=== PATIENT | female | born 1975 | race Caucasian/White ===

== ENCOUNTER 2017-04-16 16:59 | Emergency (ER) | payer BC ==
--- NOTE | 2017-04-16 17:16 | EDM.PDOC ---
ED HPI GENERAL MEDICAL PROBLEM - General Chief Complaint: Headache Stated Complaint: Headache Time Seen by Provider: 04/16/17 17:07 Source of Information: Reports: Patient, RN, RN Notes Reviewed History Limitations: Reports: No Limitations - History of Present Illness INITIAL COMMENTS - FREE TEXT/NARRATIVE: Patient presents the emergency room at [facility] complaining of "migraine" headache. The patient states that her headache began earlier this morning at 1: 30 AM. The patient states that the headache started behind her left eye and now has migrated to the right eye. The patient states the headache is throbbing and pounding. The patient states she has been taking Tylenol without any relief. The patient feels somewhat nauseated but has not thrown up. Patient denies any diarrhea. The patient states that her headaches are quite infrequent. The patient complains of photophobia that is quite severe. Patient denies any focal neurological deficit. Patient denies any chest pain or shortness of breath. No abdominal pain. Patient states she does not have an allergy to Imitrex. She states the med just does not work for her. Onset: Today Onset Date: 04/16/17 Onset Time: 03:00 Duration: Constant Location: Reports: Head Quality: Reports: Stabbing, Throbbing Severity: Severe Improves with: Reports: None Worsens with: Reports: Movement Context: Denies: Exercise, Sick Contact, Trauma Associated Symptoms: Reports: Nausea/Vomiting Treatments TIME ANALYSIS CLERK: Reports: Acetaminophen (no relief) Right Headache Pain Score (Numeric/FACES): 10 - Related Data Allergies Allergy/AdvReac Type Severity Reaction Status Date / Time bupropion HCl Allergy Anxiety Verified 04/16/17 17:16 [From Wellbutrin] hydrocodone Allergy Itching Verified 04/16/17 17:16 Home Meds: Home Meds Hydrochlorothiazide 25 mg PO DAILY 09/21/13 [History] Levothyroxine 175 mcg PO DAILY 09/21/13 [History] traZODone 50 mg PO BEDTIME PRN 09/21/13 [History] Cephalexin 250 mg PO DAILY 06/05/14 [History] Social & Family History - Tobacco Use Smoking Status *Q: Current Every Day Smoker Years of Tobacco use: 20 - Alcohol Use Days Per Week of Alcohol Use: 1 Number of Drinks Per Day: 6 Total Drinks Per Week: 6 - Recreational Drug Use Recreational Drug Use: No ED ROS GENERAL - Review of Systems Review Of Systems: See Below Constitutional: Denies: Fever, Chills, Weakness Respiratory: Denies: Shortness of Breath, Cough Cardiovascular: Denies: Chest Pain, Palpitations GI/Abdominal: Reports: Nausea. Denies: Abdominal Pain, Vomiting Skin: Reports: No Symptoms Neurological: Reports: Headache, Other (severe photophobia). Denies: Numbness, Paresthesia, Tingling - Physical Exam Exam: See Below Exam Limited By: No Limitations General Appearance: Alert, No Apparent Distress Eye Exam: Bilateral Eye: EOMI, Normal Inspection, PERRL Head Exam: Atraumatic, Normocephalic Neck: Supple Respiratory/Chest: No Respiratory Distress, Lungs Clear, Normal Breath Sounds Cardiovascular: Normal Peripheral Pulses, Regular Rate, Rhythm GI/Abdominal: Normal Bowel Sounds, Soft, Non-Tender Neuro Exam (Abbreviated): Alert, Oriented Skin Exam: Warm, Dry, Intact, Normal Color, No Rash Course - Vital Signs Last Recorded V/S: Last Vital Signs Temp 36.2 C 04/16/17 17:05 Pulse 72 04/16/17 17:05 Resp 16 04/16/17 17:05 BP 114/75 04/16/17 17:05 Pulse Ox - Orders/Labs/Meds Meds: Medications Discontinued Medications Generic Name Dose Route Start Last Admin Trade Name Christian PRN Reason Stop Dose Admin Chlorpromazine HCl 50 mg 04/16/17 17:38 Thorazine IM 04/16/17 17:39 ONETIME ONE Ketorolac Tromethamine 60 mg 04/16/17 17:36 Toradol IM 04/16/17 17:37 ONETIME ONE Ondansetron HCl 4 mg 04/16/17 17:39 Zofran IM 04/16/17 17:40 ONETIME ONE Departure - Departure Time of Disposition: 17:41 Disposition: Home, Self-Care 01 Condition: Good Clinical Impression: Tension headache - Discharge Information Instructions: Tension Headache Forms: ED Department Discharge Additional Instructions: 1. Stay well hydrated and rest 2. May continue with Tylenol as needed 3. See your Primary as symptoms warrant 4. Call with any questions/concerns - Problem List Review Problem List Initiated/Reviewed/Updated: Yes
[2017-04-16 17:32] VITALS: BP 114/75
[2017-04-16] MEDS: Ondansetron 4 MG/2 ML SDV IM ONE (17:53)
[2017-04-16] MEDS: Ketorolac 60 MG/2 ML SDV IM ONE (17:55)
== END 2017-04-16 18:01 | disposition home or self-care (01) ==
LOC: VM.ED 16:59
DX: G44.209 Tension-type headache, unspecified, not intractable (principal); F17.200 Nicotine dependence, unspecified, uncomplicated; Z79.2 Long term (current) use of antibiotics; Z79.899 Other long term (current) drug therapy; Z88.5 Allergy status to narcotic agent; Z88.8 Allergy status to other drugs, medicaments and biological substances
CPT/HCPCS: 96372; 99283; J1885; J2405; J3230

== ENCOUNTER 2018-12-16 20:11 | Emergency (ER) | payer BC ==
[2018-12-16 20:19] VITALS: BP 137/78; PULSE 81
[2018-12-16] MEDS ORDERED: Proparacaine 0.5% Ophth Soln 15 ML Bottle EYELF ONE (20:20)
[2018-12-16] MEDS ORDERED: Fluorescein 1 MG Ophth Strip EYELF ONE (20:20)
[2018-12-16] MEDS ORDERED: Take Home: Gentamicin 0.3% Ophth Soln 5 ML, 1 Bottle Pack EYEBOTH ONE (20:27)
[2018-12-16] MEDS ORDERED: Take Home: Acetaminophen/Codeine 300 MG/30 MG, 5 Tab Pack PO ONE (20:29)
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
== END 2018-12-16 20:45 | disposition home or self-care (01) ==
LOC: VM.ED 20:11
DX: T26.11XA Burn of cornea and conjunctival sac, right eye, initial encounter (principal); T26.02XA Burn of left eyelid and periocular area, initial encounter; E03.9 Hypothyroidism, unspecified; Z88.5 Allergy status to narcotic agent; Z88.8 Allergy status to other drugs, medicaments and biological substances; Z79.899 Other long term (current) drug therapy; X08.8XXA Exposure to other specified smoke, fire and flames, initial encounter
CPT/HCPCS: 99282; A9270-GY

== ENCOUNTER 2019-04-25 20:43 | Emergency (ER) | payer BC ==
--- NOTE | 2019-04-25 21:10 | EDM.PDOC ---
ED HPI GENERAL MEDICAL PROBLEM - General Chief Complaint: Headache Stated Complaint: MIGRAINE Time Seen by Provider: 04/25/19 20:50 Source of Information: Reports: Patient - History of Present Illness INITIAL COMMENTS - FREE TEXT/NARRATIVE: Patient presents to the ER with complaints of a migraine. Patient states she started to feel off yesterday then all the sudden felt pain in her right neck that radiated to her right eye. Patient states she also has been nauseated with emesis. Patient states she has a history of migraines, has not had one for about 2 years. Has been seen in the ER in the past for them. Was taking Imitrex in the past but stop taking it due to worsening of symptoms. Patient states took tylenol and ibuprofen at home without relief. Patient denies aura, visual changes, ENT symptoms, diarrhea, abdominal pain, or recent illness exposure. Onset: Today Onset Date: 04/24/19 Onset Time: 15:00 Duration: Getting Worse Location: Reports: Head Quality: Reports: Ache, Sharp Severity: Moderate Improves with: Reports: None Worsens with: Reports: None Associated Symptoms: Reports: Nausea/Vomiting Treatments CHILDREN'S INSTITUTION ATTENDANT: Reports: Acetaminophen, NSAIDS Headache Pain Score (Numeric/FACES): 7 - Related Data Allergies Allergy/AdvReac Type Severity Reaction Status Date / Time hydrocodone Allergy Itching Verified 04/25/19 20:59 bupropion HCl AdvReac Anxiety Verified 04/25/19 20:59 [From Wellbutrin] Home Meds: Home Meds Levothyroxine 175 mcg PO DAILY 09/21/13 [History] Past Medical History Neurological History: Reports: Migraines Psychiatric History: Reports: Depression Endocrine/Metabolic History: Reports: Hypothyroidism ED ROS GENERAL - Review of Systems Review Of Systems: See Below Constitutional: Reports: Fatigue, Decreased Appetite. Denies: Fever, Diaphoresis HEENT: Reports: Glasses. Denies: Ear Discharge, Ear Pain, Eye Discharge, Throat Pain, Vertigo Respiratory: Denies: Shortness of Breath, Wheezing, Cough, Sputum Cardiovascular: Denies: Palpitations, Syncope Endocrine: Reports: No Symptoms GI/Abdominal: Reports: Decreased Appetite, Nausea, Vomiting. Denies: Abdominal Pain, Constipation, Diarrhea : Reports: No Symptoms Musculoskeletal: Reports: No Symptoms Skin: Reports: No Symptoms Neurological: Reports: Headache, Numbness, Tingling (in right arm, chronic). Denies: Confusion, Dizziness, Paresthesia, Syncope, Tremors, Weakness Psychiatric: Reports: No Symptoms Hematologic/Lymphatic: Reports: No Symptoms Immunologic: Reports: No Symptoms ED EXAM, GENERAL - Physical Exam Exam: See Below Exam Limited By: No Limitations General Appearance: Alert, WD/WN, No Apparent Distress Eye Exam: Bilateral Eye: EOMI, PERRL Ears: Normal External Exam, Normal Canal, Hearing Grossly Normal, Normal TMs Ear Exam: Bilateral Ear: Auricle Normal, Canal Normal, TM normal Nose: Normal Inspection, Normal Mucosa, No Blood Throat/Mouth: Normal Inspection, Normal Teeth Head: Atraumatic, Normocephalic Neck: Normal Inspection, Supple, Non-Tender, Full Range of Motion Respiratory/Chest: No Respiratory Distress, Lungs Clear, Normal Breath Sounds, No Accessory Muscle Use, Chest Non-Tender Cardiovascular: Normal Peripheral Pulses, Regular Rate, Rhythm, No Edema, No Murmur Peripheral Pulses: 2+: Radial (L), Radial (R) (Female) Exam: Deferred Rectal (Female) Exam: Deferred Extremities: Normal Inspection, Normal Range of Motion Neurological: Alert, Oriented, CN II-XII Intact, Normal Cognition, Normal Gait, Normal Reflexes, No Motor/Sensory Deficits Psychiatric: Normal Affect, Normal Mood Skin Exam: Warm, Dry, Intact, Normal Color, No Rash Lymphatic: No Adenopathy Course - Vital Signs Last Recorded V/S: Last Vital Signs Temp 36.8 C 04/25/19 20:43 Pulse 78 04/25/19 20:43 Resp 16 04/25/19 20:43 BP 126/64 04/25/19 20:43 Pulse Ox 99 04/25/19 20:43 - Orders/Labs/Meds Meds: Medications Discontinued Medications Generic Name Dose Route Start Last Admin Trade Name Freq PRN Reason Stop Dose Admin Chlorpromazine HCl 50 mg 04/25/19 21:01 04/25/19 21:23 Thorazine IM 04/25/19 21:02 50 mg ONETIME ONE Administration Diphenhydramine HCl 50 mg 04/25/19 21:01 04/25/19 21:24 Benadryl IM 04/25/19 21:02 50 mg ONETIME ONE Administration Ketorolac Tromethamine 30 mg 04/25/19 21:02 04/25/19 21:23 Toradol IM 04/25/19 21:03 30 mg ONETIME ONE Administration Departure - Departure Time of Disposition: 21:28 Disposition: Home, Self-Care 01 Clinical Impression: Migraine - Discharge Information Instructions: Migraine Headache, [id number] Referrals: Lucretia Hernandez MD [Primary Care Provider] - Forms: ED Department Discharge Additional Instructions: Home to rest. Return to ER/follow-up in clinic if not gradually improving over the next 12 hours. Drink plenty of fluids. Recheck in clinic in 10-14 days. Sepsis Event Note - Focused Exam Vital Signs: Vital Signs Temp Pulse Resp BP Pulse Ox 04/25/19 20:43 36.8 C 78 16 126/64 99 Date Exam was Performed: 04/25/19 Time Exam was Performed: 21:27 - Problem List Review Problem List Initiated/Reviewed/Updated: Yes - Assessment/Plan Plan: Home to rest. Return to ER/follow-up in clinic if not gradually improving over the next 12 hours. Drink plenty of fluids. Recheck in clinic in 10-14 days.
[2019-04-25 21:11] VITALS: BP 126/64; PULSE 78
[2019-04-25] MEDS: Ketorolac 30 MG/ML SDV IM ONE (21:23)
[2019-04-25] MEDS: diphenhydrAMINE 50 MG/ML SDV IM ONE (21:24)
== END 2019-04-25 21:30 | disposition home or self-care (01) ==
LOC: VM.ED 20:43
DX: G43.909 Migraine, unspecified, not intractable, without status migrainosus (principal); E03.9 Hypothyroidism, unspecified; Z88.5 Allergy status to narcotic agent; Z88.8 Allergy status to other drugs, medicaments and biological substances; Z79.899 Other long term (current) drug therapy
CPT/HCPCS: 96372; 99283-25; J1200; J1885; J3230

== ENCOUNTER 2020-01-03 22:55 | Emergency (ER) | payer BC, OTHER ==
[2020-01-03] MEDS ORDERED: Morphine 2 MG/ML SYRINGE IM ONE (23:09)
[2020-01-03 23:15] VITALS: BP 144/89; PULSE 94
--- NOTE | 2020-01-03 23:15 | EDM.PDOC ---
ED HPI GENERAL MEDICAL PROBLEM - General Chief Complaint: Upper Extremity Injury/Pain Stated Complaint: Left shoulder pain , post cortisone injection Time Seen by Provider: 01/03/20 23:06 Source of Information: Reports: Patient - History of Present Illness INITIAL COMMENTS - FREE TEXT/NARRATIVE: Lourdes is a 44 y/o female who comes to the ER with left shoulder pain. She has been seeing [facility] for ongoing left shoulder pain and had a steroid injection this afternoon. Tonight when she got home, the pain in her shoulder was very achy and constant. She took a total of 6 ibuprofen since about 1800, but it has not helped at all. She is scheduled to have a Shoulder Arthroscopy in the next month. No fevers. She has had several steroid injections in the past and has never h ad this much pain following the injection. She could not lay down to get comfortable for sleep tonight due to the pain. - Related Data Allergies Allergy/AdvReac Type Severity Reaction Status Date / Time hydrocodone Allergy Itching Verified 01/03/20 23:15 bupropion HCl AdvReac Anxiety Verified 01/03/20 23:15 [From Wellbutrin] Home Meds: Home Meds Levothyroxine 175 mcg PO DAILY 09/21/13 [History] hydroCHLOROthiazide [Hydrochlorothiazide] 25 mg PO DAILY 01/03/20 [History] Past Medical History Neurological History: Reports: Migraines Psychiatric History: Reports: Depression Endocrine/Metabolic History: Reports: Hypothyroidism - Past Surgical History HEENT Surgical History: Reports: Myringotomy w Tube(s), Tonsillectomy Female Surgical History: Reports: Hysterectomy Musculoskeletal Surgical History: Reports: Arthroscopic Knee Review of Systems - Review of Systems Review Of Systems: See Below Constitutional: Reports: No Symptoms Eyes: Reports: No Symptoms Ears: Reports: No Symptoms Nose: Reports: No Symptoms Mouth/Throat: Reports: No Symptoms Respiratory: Reports: No Symptoms Cardiovascular: Reports: No Symptoms GI/Abdominal: Reports: No Symptoms Genitourinary: Reports: No Symptoms Musculoskeletal: Reports: Joint Pain (Left Shoulder) Skin: Reports: No Symptoms Neurological: Reports: No Symptoms Psychiatric: Reports: No Symptoms ED EXAM, GENERAL - Physical Exam Exam: See Below Exam Limited By: No Limitations General Appearance: Alert, WD/WN, No Apparent Distress (Adult female) Ears: Hearing Grossly Normal Throat/Mouth: Normal Voice Head: Atraumatic, Normocephalic Respiratory/Chest: No Respiratory Distress Cardiovascular: Regular Rate, Rhythm Peripheral Pulses: 3+: Radial (L), Radial (R) (Female) Exam: Deferred Rectal (Female) Exam: Deferred Back Exam: Normal Inspection Extremities: Other (Left shoulder without erythema or deformity, ROM tender. Note tenderness to palpation over entrire left shoulder region.) Neurological: Alert, Oriented, CN II-XII Intact Psychiatric: Normal Affect, Normal Mood Skin Exam: Warm, Dry, Intact, Normal Color Lymphatic: No Adenopathy Course - Vital Signs Text/Narrative:: 230 The patient was seen by the ECONOMETRICS PROFESSOR. She was given Morphine 4mg IM for pain. 2344 Pain improving and patient thinks she could relax to sleep now. Will send the patient home with a few pain meds to use tonight until she can contact Ortho in the AM if her pain persists. She was given discharge instructions and left the ER in stable condition. - Orders/Labs/Meds Orders: Active Orders 24 hr Category Date Time Status Morphine Med 01/03/20 23:09 Once 4 mg IM ONETIME ONE Departure - Departure Time of Disposition: 23:45 Disposition: Home, Self-Care 01 Preliminary Cause of *Q: Cardiac Arrest Clinical Impression: Shoulder pain, left Qualifiers: Chronicity: unspecified Qualified Code(s): M25.512 - Pain in left shoulder - Discharge Information *PRESCRIPTION DRUG MONITORING PROGRAM REVIEWED*: No *COPY OF PRESCRIPTION DRUG MONITORING REPORT IN PATIENT PETEY: No Instructions: Shoulder Pain, Acetaminophen; Oxycodone tablets Referrals: Lucretia Hernandez MD [Primary Care Provider] - - My Orders Last 24 Hours: My Active Orders 01/03/20 23:09 Morphine 4 mg IM ONETIME ONE - Assessment/Plan Last 24 Hours: My Active Orders 01/03/20 23:09 Morphine 4 mg IM ONETIME ONE Assessment:: 1)Left Shoulder Pain Plan: -Oxycodone/APAP 5/325mg 1-2 tablets oral every 4-6 hours as needed for pain #5(ER) -Use ice or heat as needed -Contact your Orthopedic provider tomorrow if your pain is not improving or you have any other concerns -Return to the ER as needed
[2020-01-03] MEDS ORDERED: Morphine 4 MG/ML Syringe IM ONE (23:19)
[2020-01-03] MEDS ORDERED: Take Home: Acetaminophen/oxyCODONE 325-5 MG, 5 Tab Pack PO ONE (23:20)
[2020-01-03] MEDS ORDERED: Morphine 4 MG/ML Syringe ONE (23:25)
== END 2020-01-03 23:48 | disposition home or self-care (01) ==
LOC: VM.ED 22:55
DX: M25.512 Pain in left shoulder (principal); E03.9 Hypothyroidism, unspecified; Z88.8 Allergy status to other drugs, medicaments and biological substances; Z88.5 Allergy status to narcotic agent; Z79.899 Other long term (current) drug therapy
CPT/HCPCS: 96372; 99283; A9270-GY; J2270

== ENCOUNTER 2024-11-04 18:48 | Emergency (ER) | payer BC, OTHER ==
[2024-11-04 19:03] VITALS: BP 133/74; PULSE 70
== END 2024-11-04 19:20 | disposition home or self-care (01) ==
LOC: VM.ED 18:48
DX: E03.9 Hypothyroidism, unspecified (principal); S61.211A Laceration without foreign body of left index finger without damage to nail, initial encounter; Z88.8 Allergy status to other drugs, medicaments and biological substances; Z79.890 Hormone replacement therapy; X58.XXXA Exposure to other specified factors, initial encounter
CPT/HCPCS: 12001; 99282; J2003